=== PATIENT | male | born 1960 | race Caucasian/White ===

== ENCOUNTER 2021-02-17 20:02 | Emergency (ER) | payer OTHER ==
[~2021-02-17] VITALS: Ht 182.9 cm; Wt 105.0 kg
[2021-02-17 20:04] VITALS: BP 0/0
--- NOTE | 2021-02-17 20:07 | NUR ---
PT WITNESSED ARREST CPR STARTED BY FAMILY, DOWNTIME APPROX 40 MINUTES. CPR START BY FAMILY THEN STOPPED FOR SEVERAL MINUTES THEN RESTARTED BY FD. LMA IN PLACE. VFIB W SHOCK X5, EPI X4. IO RLE. [address] ON [address]. TIME OF CALLED [address] GANN.
--- NOTE | 2021-02-17 20:08 | NUR ---
FATHER POP EXT [id number]
--- NOTE | 2021-02-17 20:25 | NUR ---
PTS ARRIVED TO ROOM, AND IS DISTRAUGHT AND TEARFUL. FAMILY PROVIDED INFORMATION AND COMFORT AT THIS TIME. FATHER POP CALLED FOR BEREAVEMENT ASSISTANCE.
--- NOTE | 2021-02-17 20:43 | NUR ---
FATHER POP TO ROOM TR4 TO SPEAK WITH PTS WANDA. PTS FACE CLEANED, AND PT COVERED WITH BLANKET FOR PTS WANDA TO SPEND SOME TIME WITH HIM.
--- NOTE | 2021-02-17 21:19 | NUR ---
PT BELONGINGS REMOVED FROM POCKETS AND PROVIDED TO THE PTS MADIHAUMMMckenna ARE LISTED 3 $20 BILLS 1 $10 BILL 1 $5 BILL 2 $1 BILL 1- APPLE WATCH BLACK 2- SET OF CAR AND MISCELLANEOUS KEYS 3-HOTEL KEYS PLAZA HOTEL 4- PTS CELL PHONE ALL ITEMS WERE HANDED TO THE FIANCEE AND ARE IN HER POSSESION AT THIS TIME.
--- NOTE | 2021-02-17 23:11 | NUR ---
PTS WANDA SAID HER GOODBYES AND IS READY TO LEAVE AND GO TO HER FAMILY. WANDA PROVIDED WITH A TAXI TO HER HOTEL. PT BODY TAGGED AND SECURED IN 2 BODY BAGS, AND THE BAG LABELED WELL. PTS BODY TAKEN TO THE MORGUE AND SECURED IN FREEZER #4 AND LOGGED INTO THE LOG. KEYS RETURNED TO NURSING OPERATIONS OFFICE.
== END 2021-02-17 23:14 ==
LOC: ED 20:20
DX: I46.9 Cardiac arrest, cause unspecified (principal); I10 Essential (primary) hypertension; E78.5 Hyperlipidemia, unspecified; E11.9 Type 2 diabetes mellitus without complications; I25.2 Old myocardial infarction; I48.91 Unspecified atrial fibrillation
CPT/HCPCS: 92950; 99285